=== PATIENT | male | born 2000 | race African-American/Black ===

== ENCOUNTER 2024-10-03 09:18 | Emergency (ER) | payer OTHER, MEDICAID ==
[~2024-10-03] VITALS: Ht 172.7 cm; Wt 68.0 kg
[2024-10-03] MEDS ORDERED: METHOCARBAMOL (500MG) 500 MG TABLET ONE (10:03)
[2024-10-03] MEDS ORDERED: KETOROLAC TROMETHAMINE INJ 30 MG/ML VIAL ONE (10:03)
[2024-10-03] MEDS: KETOROLAC TROMETHAMINE INJ 30 MG/ML VIAL IM ONE (10:10)
[2024-10-03] MEDS: METHOCARBAMOL (750MG) 750 MG TABLET PO ONE (10:11)
[2024-10-03] MEDS ORDERED: IBUP-1490 PO (11:08)
[2024-10-03] MEDS ORDERED: METH-647 PO (11:08)
[2024-10-03 11:20] VITALS: BP 115/80; TEMP 98.2; O2SAT 100
== END 2024-10-03 11:21 | disposition home or self-care (01) ==
LOC: ER 09:23
DX: M54.2 Cervicalgia (principal); M62.838 Other muscle spasm
CPT/HCPCS: 99285; 72125; 96372; J1885